=== PATIENT | female | born 2000 | race Caucasian/White ===

== ENCOUNTER 2023-08-12 15:11 | Emergency (ER) | payer BC, SELFPAY ==
[2023-08-12 15:31] VITALS: BP 125/83; PULSE 88; RESP 18; TEMP 36.9; O2SAT 98; BMI 27.4
--- NOTE | 2023-08-12 15:55 | CRLHL7_ITS ---
For Patients: As a result of the Century Cures Act, medical imaging exams and procedure reports are released immediately into your electronic medical record. You may view this report before your referring provider. If you have questions, please contact your health care provider. INDICATION: Right lower quadrant pain TECHNIQUE: CT abdomen and pelvis acquired with 71 cc Isovue 370 IV contrast. Permanently recorded images are archived. COMPARISON: None. FINDINGS: Lower chest: Unremarkable. Liver: Unremarkable. Normal in size and attenuation. No suspicious masses. Gallbladder and bile ducts: Unremarkable. No stones or inflammation. No biliary dilatation. Pancreas: Unremarkable. No mass or inflammation. Spleen: Unremarkable. Normal in size. No masses. Adrenal glands: Unremarkable. No nodules. Kidneys, Ureters, and Bladder: Unremarkable. No suspicious masses, stones, or hydronephrosis. Unremarkable ureters and bladder. GI tract: Unremarkable. Normal in caliber. No sign of inflammation. Normal appendix. Vasculature: Abdominal aorta is normal in caliber. Mesenteric arteries are patent. Lymph nodes: No lymphadenopathy. Peritoneum/Abdominal Wall: Unremarkable. No free air or significant free fluid. Pelvis: Unremarkable. Bones: Unremarkable for age. IMPRESSION: Unremarkable CT of the abdomen and pelvis. No acute findings. Normal appendix. Please note that all CT scans at this facility use dose modulation, iterative reconstruction, and/or weight-based dosing when appropriate to reduce radiation dose to as low as reasonably achievable. Dictated by Mark Kasper MD @ 08/12/2023 6:15:13 PM (Electronically Signed)
[2023-08-12] MEDS: 0.9 % SODIUM CHLORIDE 1000 ml 1,000 ML IV (16:00)
--- NOTE | 2023-08-12 16:00 | ED.GENADULT ---
HPI - General Adult General Date Seen: 08/12/23 Chief complaint: Abdominal Pain Stated complaint: R abdomen pain Time Seen by Provider: 08/12/23 15:49 Source: patient and RN notes reviewed Mode of arrival: ambulatory Limitations: no limitations History of Present Illness HPI narrative: Patient is a 22-year-old young woman who presents for evaluation of abdominal pain. She says it started relatively abruptly yesterday at around 4 5:00 p.m. and has gotten slightly worse since then. Sometime she has supraumbilical pain which radiates to the back, and also has right lower quadrant pain. She feels that the right lower quadrant pain now predominates. She has not had any nausea vomiting, normal bowel movements without diarrhea constipation. She does feel that her appetite has been decreased today. No fevers. No urinary symptoms. She says that her periods are irregular but she did have 1 2 weeks ago. She denies sexual activity. No previous abdominal surgeries, denies any other medical history. No allergies, does not smoke or drink. She is in school. Related Data Home Medications Medication Instructions Recorded Confirmed No Known Home Medications 08/12/23 08/12/23 Allergies Allergy/AdvReac Type Severity Reaction Status Date / Time No Known Drug Allergies Allergy Verified 08/12/23 17:07 Review of Systems Status of ROS: Reports: 10 or more systems reviewed and unremarkable except as noted in History and below Exam Narrative: Exam Narrative: Vital signs as noted above. In general, an alert, well-appearing patient. Head: Normocephalic, atraumatic. Eyes: Pupils are equal reactive. Extraocular movements are full. Conjunctivae are normal. ENT: Mucous membranes are moist. Throat is normal. Neck: Supple without lymphadenopathy. Heart: Regular rate and rhythm. No murmur or rub. Lungs: Clear bilaterally. No increased work of breathing, crackles or wheezes. Abdomen: Abdomen is soft and nondistended. She has fairly diffuse lower abdominal tenderness greatest in the right lower quadrant. She does not have any epigastric or left upper quadrant tenderness, minimal right upper quadrant tenderness, negative Lopez's. Extremities: Well perfused. No edema. No calf tenderness. Pulses intact. Neurologic: Patient is alert and oriented to person and place. Speech is fluent. Face is symmetric. Moves all extremities equally. Affect: Normal. Skin: Warm and dry. Well perfused. Const: Vital Signs, click to edit/add: Vital Signs - 24 hr 08/12/23 15:31 Temperature 98.4 F Pulse Rate [Pulse Oximeter] 88 Respiratory Rate 18 Blood Pressure [Ri ght Upper Arm] 125/83 Pulse Oximetry 98 Oxygen Delivery Me thod Room Air Documenting provider has reviewed patient's vital signs: yes Course Course ED Course: Given right lower quadrant tenderness, elected to do CT scan in addition to labs. Diagnostic considerations included appendicitis, ovarian pathology such as cyst, less likely torsion, urinary tract infection, kidney stone, biliary colic or cholecystitis, among others. Workup here is generally reassuring. Her white blood cell count is normal at 9.5 without significant left shift. Metabolic panel and LFTs are normal. CRP minimally elevated at 1.7. Urinalysis is notable for 2-5 red cells, 50-100 white blood cells. The initial urinalysis noted presence of Trichomonas, but patient in fact says that she has never been sexually active and a follow-up called the lab shows that this was in error, she had a little bit of yeast but does not complain of any symptoms of yeast vaginitis. CT scan by my review showed no evidence of ovarian cyst or free fluid in the pelvis, normal appendix, no other acute findings by my review. Final radiology read is negative for any acute findings. Overall, I do think she needs treated for urinary tract infection given the appearance of her urine, this certainly could be causing some lower abdominal discomfort for her. I have prescribed Macrobid and Pyridium from pains to meds. Otherwise she is nontoxic appearance, abdominal exam is not concerning. No evidence of pyelonephritis. test was negative. Return for more severe symptoms such as high fevers, severe pain, flank pain, vomiting etcetera. Urine culture is pending. Vital Signs Vital signs: Initial Vital Signs Temperature 98.4 F 08/12/23 15:31 Temperature Source Temporal Artery Scan 08/12/23 15:31 Pulse Rate 88 08/12/23 15:31 Respiratory Rate 18 08/12/23 15:31 Blood Pressure 125/83 08/12/23 15:31 Blood Pressure Mean 97 08/12/23 15:31 Blood Pressure Position Sitting 08/12/23 15:31 Pulse Oximetry 98 08/12/23 15:31 Oxygen Delivery Method Room Air 08/12/23 15:31 Vital Signs Temperature 98.4 F 08/12/23 15:31 Pulse Rate 88 08/12/23 15:31 Respiratory Rate 18 08/12/23 15:31 Blood Pressure 125/83 08/12/23 15:31 Pulse Oximetry 98 08/12/23 15:31 Oxygen Delivery Method Room Air 08/12/23 15:31 Temperature 98.4 F 08/12/23 15:31 Pulse Rate 88 08/12/23 15:31 Respiratory Rate 18 08/12/23 15:31 Blood Pressure 125/83 08/12/23 15:31 Pulse Oximetry 98 08/12/23 15:31 Oxygen Delivery Method Room Air 08/12/23 15:31 Medications Administered Medications: Discontinued Medications Generic Name Dose Route Start Last Admin Trade Name Freq PRN Reason Stop Dose Admin Sodium Chloride 1,000 mls @ 1,000 mls/hr 08/12/23 16:00 08/12/23 17:00 0.9 % Sodium Chloride 1000 Ml IV 08/12/23 16:59 Infused .Q1H BRENDA Infusion Medical Decision Making Lab Data Labs: Lab Results 08/12/23 08/12/23 Range/Units 16:16 17:10 WBC 9.51 (4.50-11.00) K/uL RBC 4.92 (4.00-5.20) m/uL Hgb 12.0 (12.0-16.0) gm/dL Hct 37.4 (33.0-51.0) % MCV 76 L (80-100) fL MCH 24 L (26-34) pg MCHC 32 (32-36) gm/dL RDW Coeff of Gladys 14.8 (11.5-15.5) % Plt Count 281 (140-440) K/uL Neut % (Auto) 54.5 (42.0-72.0) % Lymph % (Auto) 37.9 (20-44) % [place] % (Auto) 6.4 (0.0-11.0) % Eos % (Auto) 0.8 (0.0-7.0) % Baso % (Auto) 0.3 (0.0-3.0) % Neut # (Auto) 5.18 (1.7-7.0) K/uL Lymph # (Auto) 3.60 H (0.90-2.90) K/uL [place] # (Auto) 0.60 (0.00-0.90) K/UL Eos # (Auto) 0.08 (0.00-0.50) K/uL Baso # (Auto) 0.03 (0.00-0.30) K/uL Abs Immat Gran (auto) 0.01 (0.00-0.30) K/uL Imm/Tot Granulo (auto) 0.1 % Sodium 140 (135-149) mmol/L Potassium 3.7 (3.6-5.1) mmol/L Chloride 107 (96-114) mmol/L Carbon Dioxide 25 (20-32) mmol/L Anion Gap 8 (7-15) mEq/L BUN 10 (5-24) mg/dL Creatinine 0.5 (0.5-1.5) mg/dL Estimated Creat Clear 133.18 Estimated GFR 136 ml/min Glucose 99 (60-115) mg/dL Calcium 9.1 (8.4-10.6) mg/dL C-Reactive Protein 1.7 H (0.5-1.0) mg/dL HCG, Qual Negative (Negative) Urine Color Yellow (Yellow) Urine Appearance Cloudy A (Clear) Urine pH 6.5 (5.0-8.5) Ur Specific [place] 1.015 (1.000-1.030) Urine Protein Negative (Negative) Urine Glucose (UA) Negative (Negative) Urine Ketones Negative (Negative) Urine Blood Trace-intact A (Negative) Urine Nitrite Negative (Negative) Urine Bilirubin Negative (Negative) Urine Urobilinogen 0.2 (0.2-1.0) Ur Leukocyte Esterase 3+ A (Negative) Urine RBC 2-5 A (0-2) Urine WBC 50-100 A (0-5) Ur Squamous Epith Cells Moderate A (None-Few) Urine Bacteria Moderate A (None) Urine Trichomonas SLOT TECHNICIAN Urine Yeast Few A (None) Discharge Plan Discharge Clinical Impression: Urinary tract infection Patient Disposition: Home, Self-Care Condition: Stable Instructions: Urinary Tract Infection in Women (ED) Additional Instructions: Antibiotic as prescribed. Pyridium as a bladder anesthetic that may help with your pain. For severe pain, flank pain, fevers, chills, vomiting or other worsening return at any time for re-evaluation. The other infection that I mentioned was not accurate, this was a lab error. The rest of your urinalysis and blood work is normal. Prescriptions: No Action No Known Home Medications Follow Up/Referrals: Provider,Not a Local [Primary Care Provider] - Stand Alone Forms: [employer] Info Instructions
[2023-08-12 16:26] LABS: Basophils Absolute Auto 0.03 K/uL (0.00-0.30); Basophils Percent Auto 0.3 % (0.0-3.0); Eosinophils Absolute Auto 0.08 K/uL (0.00-0.50); Eosinophils Percent Auto 0.8 % (0.0-7.0); Hematocrit 37.4 % (33.0-51.0); Immature Granulocytes Abs Auto 0.01 K/uL (0.00-0.30); Immature Granulocytes Pct Auto 0.1 %; Lymphocytes Percent Auto 37.9 % (20-44); Mean Corpuscular HGB Conc 32 gm/dL (32-36); Mean Corpuscular Hemoglobin 24 pg (26-34); Mean Corpuscular Volume 76 fL (80-100); Monocytes Percent Auto 6.4 % (0.0-11.0); Neutrophils Absolute Auto 5.18 K/uL (1.7-7.0); Neutrophils Percent Auto 54.5 % (42.0-72.0); Platelet Count* 281 K/uL (140-440); RDW Coefficient of Variation % 14.8 % (11.5-15.5); Red Blood Count 4.92 m/uL (4.00-5.20); White Blood Count* 9.51 K/uL (4.50-11.00)
[2023-08-12 16:27] LABS: Slide Review Reflex No
[2023-08-12 16:37] LABS: Chloride* 107 mmol/L (96-114); Sodium* 140 mmol/L (135-149)
[2023-08-12 16:38] LABS: Potassium* 3.7 mmol/L (3.6-5.1)
[2023-08-12 16:40] LABS: Creatinine* 0.5 mg/dL (0.5-1.5); Est. Creatinine Clearance* 133.18; Estimated Glomerular Filt Rate 136 ml/min
[2023-08-12 16:41] LABS: Anion Gap 8 mEq/L (7-15); Blood Urea Nitrogen* 10 mg/dL (5-24); Calcium* 9.1 mg/dL (8.4-10.6); Carbon Dioxide* 25 mmol/L (20-32); Glucose* 99 mg/dL (60-115)
[2023-08-12 16:44] LABS: C Reactive Protein* 1.7 mg/dL (0.5-1.0)
[2023-08-12 16:50] LABS: HCG Qualitative Serum* Negative (Negative)
[2023-08-12 17:18] LABS: Appearance Urine Cloudy (Clear); Bilirubin Urine Negative (Negative); Blood Urine Trace-intact (Negative); Color Urine Yellow (Yellow); Glucose Urine Negative (Negative); Ketones Urine Negative (Negative); Leukocyte Esterase Urine 3+ (Negative); Nitrite Urine Negative (Negative); Protein Urine Negative (Negative); Specific Gravity Urine 1.015 (1.000-1.030); Urobilinogen Urine 0.2 (0.2-1.0); pH Urine 6.5 (5.0-8.5)
[2023-08-12 17:34] LABS: Bacteria Urine Moderate; Squamous Epithelial Cell Urine Moderate (None-Few); WBC Urine 50-100 (0-5)
[2023-08-12 18:49] VITALS: BP 107/64; PULSE 80; RESP 17; O2SAT 99
== END 2023-08-12 19:00 | disposition home or self-care (01) ==
PROVIDERS: Emergency Provider Emergency Medicine
DX: N39.0 Urinary tract infection, site not specified (principal)
CPT/HCPCS: 36415; 74177; 80048; 81001; 84703; 85025; 86140; 87086; 99284; J7030; Q9967